=== PATIENT | male | born 1975 | race African-American/Black ===

== ENCOUNTER 2020-11-13 12:04 | Emergency (ER) | payer SELFPAY ==
--- NOTE | 2020-11-13 13:30 | ER Document Report ---
ED Medical Screen (RME) - General Chief Complaint: Headache Stated Complaint: HEADACHE,NECK PAIN - HPI Notes: 11/13/20 13:23 Rapid Medical Exam HPI: Pt is a 45yo male c/o 1 month of HAs. No injury or trauma. says he went to [facility] ER last week and got a shot of meds that did not help. No hx of HAs. HAs are intermittent but hsa them daily. they are diffuse. no photophobia or sensitivity to sound. no n/v, confusion, extremity weakness, or other neuro deficit. HAs are gradual onset. no fever or chills. denies any other medical history. Says his uncle of a brain aneurysm. also reports that the [facility] ER did do a brain scan last week and told him it was negative. Physical Exam: GENERAL: Well-appearing, well-nourished and in no acute distress. HEAD: Atraumatic, normocephalic. ENT: Moist mucous membranes. RESP: Respirations even and unlabored CV- Regular rate. NEURO: No focal neurological deficits. Moves all extremities spontaneously and on command. My involvement in this patients care was limited to a rapid initial assessment. A comprehensive ED assessment and evaluation of the patient, analysis of test results, treatment, and completion of the medical decision making process will be performed by other ER providers. Physical Exam - Vital signs Vitals: Temp Pulse Resp BP Pulse Ox 98.7 F 59 L 20 132/88 H 100 11/13/20 12:58 11/13/20 12:58 11/13/20 12:58 11/13/20 12:58 11/13/20 12:58 Course - Vital Signs Vital signs: Temp Pulse Resp BP Pulse Ox 98.7 F 59 L 20 132/88 H 100 11/13/20 12:58 11/13/20 12:58 11/13/20 12:58 11/13/20 12:58 11/13/20 12:58
[2020-11-13] MEDS ORDERED: METOCLOPRAMIDE HCL INJ/PF 10 MG/2 ML SDV IV ONE ×2 (13:32→16:45)
[2020-11-13] MEDS ORDERED: KETOROLAC TROMETHAMINE INJ/PF 30 MG/1 ML SDV IV ONE ×2 (13:32→16:45)
[2020-11-13] MEDS ORDERED: DIPHENHYDRAMINE HCL 50 MG/ML VIAL IV ONE ×2 (13:33→16:45)
[2020-11-13 14:10] LABS: APPEARANCE,URINE CLEAR; BILIRUBIN,URINE NEGATIVE (NEGATIVE); COLOR,URINE YELLOW; GLUCOSE, URINE NEGATIVE (NEGATIVE); KETONES,URINE NEGATIVE (NEGATIVE); LEUKOCYTE ESTERASE,URINE NEGATIVE (NEGATIVE); NITRITE,URINE NEGATIVE (NEGATIVE); PROTEIN,URINE NEGATIVE (NEGATIVE); URINE SPECIFIC GRAVITY 1.024; UROBILINOGEN,URINE NEGATIVE mg/dL (<2.0)
[2020-11-13 14:16] LABS: ABSOLUTE EOSINOPHILS # (AUTO) 0.1 10^3/uL (0.0-0.6); ABSOLUTE LYMPHOCYTES (AUTO) 1.6 10^3/uL (0.5-4.7); ABSOLUTE MONOCYTES (AUTO) 0.6 10^3/uL (0.1-1.4); BASOPHILS % (AUTO) 0.3 % (0-2); EOSINOPHILS % (AUTO) 1.2 % (0-6); HEMATOCRIT 43.4 % (37.9-51.0); HEMOGLOBIN 14.8 g/dL (13.5-17.0); LYMPHOCYTES % (AUTO) 25.4 % (13-45); MEAN CORPUSCULAR HEMOGLOBIN 28.6 pg (27.0-33.4); MEAN CORPUSCULAR HGB CONC 34.1 g/dL (32.0-36.0); MEAN CORPUSCULAR VOLUME 84 fl (80-97); MONOCYTES % (AUTO) 9.3 % (3-13); PLATELET COUNT 222 10^3/uL (150-450); RED BLOOD COUNT 5.17 10^6/uL (4.35-5.55); RED CELL DISTRIBUTION WIDTH 13.1 % (11.5-14.0); SEGMENTED NEUTROPHILS % (AUTO) 63.8 % (42-78); TOTAL CELLS COUNTED % (AUTO) 100 %; WHITE BLOOD COUNT 6.3 10^3/uL (4.0-10.5)
[2020-11-13 14:50] LABS: ALBUMIN 4.3 g/dL (3.5-5.0); ALKALINE PHOSPHATASE 52 U/L (38-126); ASPARTATE AMINO TRANSFERASE 33 U/L (17-59); BILIRUBIN,DIRECT 0.2 mg/dL (0.0-0.4); BILIRUBIN,TOTAL 0.5 mg/dL (0.2-1.3); BLOOD UREA NITROGEN 12 mg/dL (7-20); CALCIUM 9.4 mg/dL (8.4-10.2); GLUCOSE 103 mg/dL (75-110); POTASSIUM 4.5 mmol/L (3.6-5.0); TOTAL PROTEIN 7.5 g/dL (6.3-8.2)
[2020-11-13 14:55] LABS: CARBON DIOXIDE 28 mmol/L (22-30); CHLORIDE 106 mmol/L (98-107)
[2020-11-13 14:58] LABS: ANION GAP 5 (5-19)
[2020-11-13] MEDS ORDERED: METHOCARBAMOL INJ/PF 1000 MG/10 ML SDV IV ONE (17:10)
--- NOTE | 2020-11-13 17:13 | ER Document Report ---
ED Headache - General Chief Complaint: Headache Stated Complaint: HEADACHE,NECK PAIN Time Seen by Provider: 11/13/20 16:46 Notes: Patient is a 45-year-old male that comes emergency department for chief complaint of intermittent headaches for the past several weeks to a month. Patient states that he has pain in the right side of his neck, pain in the back of his head, and pain that comes around to the front of his forehead on both sides. He states headaches are intermittent but almost daily. He states his headache starts out mild and then worsens to the point that he is uncomfortable. He denies nausea, vomiting, photophobia, phonophobia, visual changes, focal numbness or weakness. He denies head injury, fever. He states that he was seen last week at [facility] and had a brain scan which she was told was normal. He denies change in headache since that time. He states he got shot in the emergency department at the time which did not seem to help. He denies any diagnosed medical history or daily medications. - Related Data Allergies/Adverse Reactions: No Known Allergies Allergy (Verified 11/13/20 16:44) Past Medical History - General Information source: Patient - Social History Smoking Status: Current Every Day Smoker Chew tobacco use (# tins/day): No Frequency of alcohol use: None Drug Abuse: Marijuana Lives with: Family Family History: Reviewed & Not Pertinent - Immunizations Immunizations up to date: Yes Hx Diphtheria, Pertussis, Tetanus Vaccination: Yes Review of Systems - Review of Systems Constitutional: No symptoms reported EENT: No symptoms reported Cardiovascular: No symptoms reported Respiratory: No symptoms reported Gastrointestinal: No symptoms reported Genitourinary: No symptoms reported Male Genitourinary: No symptoms reported Musculoskeletal: See HPI Skin: No symptoms reported Hematologic/Lymphatic: No symptoms reported Neurological/Psychological: See HPI Physical Exam - Vital signs Vitals: Temp Pulse Resp BP Pulse Ox 98.7 F 59 L 20 132/88 H 100 11/13/20 12:58 11/13/20 12:58 11/13/20 12:58 11/13/20 12:58 11/13/20 12:58 - Notes Notes: GENERAL: Alert, interacts well. No acute distress. HEAD: Normocephalic, atraumatic. EYES: Pupils equal, round, and reactive to light. Extraocular movements intact. ENT: Oral mucosa moist, tongue midline. Oropharynx unremarkable. Airway patent. Nares patent, sinuses non-tender, ear canals unremarkable, TM's intact. NECK: Full range of motion. Supple. Trachea midline. No lymphadenopathy. No nuchal rigidity LUNGS: Clear to auscultation bilaterally, no wheezes, rales, or rhonchi. No respiratory distress. Non-tender chest wall. HEART: Regular rate and rhythm. No murmur ABDOMEN: Soft, non-tender. Non-distended. Bowel sounds present in all 4 quadrants. GENITOURINARY: Deferred EXTREMITIES: Moves all 4 extremities spontaneously. No edema, normal radial and dorsalis pedis pulses bilaterally. No cyanosis. BACK: Tender along the right paracervical musculature which is reproducible. This is also painful with range of motion but full range of motion is intact. No cervical, thoracic, lumbar midline tenderness. No saddle anesthesia, normal distal neurovascular exam. Moves all extremities in full range of motion. NEUROLOGICAL: Alert and oriented x3. Normal speech. Cranial nerves II through XII grossly intact. Strength 5/5 in all extremities. PSYCH: Normal affect, normal mood. SKIN: Warm, dry, normal turgor. No rashes or lesions noted. Course - Re-evaluation Re-evalutation: Patient calm and well-appearing. Headache is not maximal at onset and is coming and going. Headache is not severe when he has it and is not severe currently. No vomiting, fever, injury, neurological deficits, nuchal rigidity. Patient reports recent head scan which was normal. Laboratory work-up from triage r eviewed and unremarkable. Vital signs unremarkable. Patient is tight musculature along the right paracervical area along with description suggesting tension headache. Strongly suspect this. Patient will be medicated for this. On reevaluation after medication patient states he feels much better, headache is gone, requesting discharge. Patient will be treated home for suspected tension headache component. Discussed return precautions. Patient states understanding and agreement. - Vital Signs Vital signs: Temp Pulse Resp BP Pulse Ox 97.6 F 69 16 115/76 100 11/13/20 18:42 11/13/20 18:42 11/13/20 18:42 11/13/20 18:42 11/13/20 18:42 - Laboratory Results Result Diagrams: 11/13/20 13:46 11/13/20 13:46 Critical Laboratory Results Reviewed: No Critical Results - Radiology Results Critical Radiology Results Reviewed: No Critical Results Discharge - Discharge Clinical Impression: Headache Qualifiers: Headache type: unspecified Headache chronicity pattern: acute headache Intractability: not intractable Qualified Code(s): R51.9 - Headache, unspecified Condition: Stable Disposition: HOME, SELF-CARE Additional Instructions: Based on your symptoms, evaluation, work-up, and response to treatment I suspect that you are having tension headaches. I recommend that you apply heat to your neck, take the naproxen anti-inflammatory, take the Robaxin muscle relaxer, and gently massage the right side of your neck. You can also take the Fioricet if needed for tension headaches. Symptoms should gradually resolve. Follow-up with primary care for additional management of this. Return if you worsen including severe headache, vomiting, fever, or any other concerning symptoms. Prescriptions: Butalb/Acetaminophen/Caffeine [Fioricet (50-325-40 mg) Tablet] 1 tab PO Q4HP PRN #20 tab PRN Reason: Naproxen 500 mg PO BID PRN #20 tablet PRN Reason: Methocarbamol [Robaxin-750] 750 mg PO QID PRN #20 tablet PRN Reason: Forms: Return to Work
[2020-11-13 18:48] VITALS: BP 115/76
== END 2020-11-13 18:48 | disposition home or self-care (01) ==
LOC: ER 12:04
DX: R51.9 Headache, unspecified (principal); M54.2 Cervicalgia; F17.200 Nicotine dependence, unspecified, uncomplicated; F12.10 Cannabis abuse, uncomplicated
CPT/HCPCS: 99284; 96375; 96365; 36415; 85025; 80053; 81001; J1200; J2800; J1885; J2765